=== PATIENT | female | born 1965 | race Two or more races ===

== ENCOUNTER 2023-03-07 08:25 | Inpatient (IN) | payer OTHER ==
[~2023-03-07] VITALS: Ht 152.4 cm; Wt 68.0 kg
[2023-03-09] MEDS ORDERED: NORVASC5 MG PO (13:16)
[2023-03-09] MEDS ORDERED: HYDROD PO (13:16)
[2023-03-09] MEDS ORDERED: COZAAR50 MG PO (13:16)
[2023-03-09] MEDS ORDERED: LIPITOR40 M1 PO (13:16)
[2023-03-09] MEDS ORDERED: SINGULAIR10 MG PO (13:17)
[2023-03-09] MEDS ORDERED: [UNRECOGNIZED DRUG - OTHER] PO (13:17)
[2023-03-15] MEDS ORDERED: HYDROCHLOROTHIA25 MG (08:04)
[2023-03-15] MEDS ORDERED: METFORMIN HCL750 MG (08:05)
[2023-03-15] MEDS ORDERED: ALBUTEROL2.5 MG/3 M (08:05)
== END 2023-03-18 07:07 | disposition home or self-care (01) | DRG 330 ==
LOC: O/R 03-15 05:29 → SURG 03-15 05:29 → O/R 03-15 08:35 → SURG 03-15 08:45
PROVIDERS: ADMIT Colon & Rectal Surgery; ATTEND Colon & Rectal Surgery
PROC: 0DBP4ZZ Excision of Rectum, Percutaneous Endoscopic Approach (ICD-10-PCS; 2023-03-15)
PROC: 0DJD8ZZ Inspection of Lower Intestinal Tract, Via Natural or Artificial Opening Endoscopic (ICD-10-PCS; 2023-03-15)
PROC: 0DT84ZZ Resection of Small Intestine, Percutaneous Endoscopic Approach (ICD-10-PCS; 2023-03-15)
PROC: 0DTN4ZZ Resection of Sigmoid Colon, Percutaneous Endoscopic Approach (ICD-10-PCS; principal; 2023-03-15 10:30)
DX: K57.32 Diverticulitis of large intestine without perforation or abscess without bleeding (principal); K92.1 Melena